=== PATIENT | female | born 1930 | race Caucasian/White ===

== ENCOUNTER 2020-01-01 18:52 | Inpatient (IN) | payer MEDICARE, BC ==
[2020-01-01] MEDS ORDERED: Enoxaparin 30 MG/0.3 ML Syringe SUBCUT SCH (20:45)
--- NOTE | 2020-01-01 20:53 | CT ---
CT HEAD WITHOUT CONTRAST INDICATION: Head injury. Spiral 3.75 mm axial sections were obtained through the brain without contrast with axial, sagittal, coronal reconstruction 01/01/2020 at 2002 hours and compared with same date CT examination from 1331 hours--6 hours prior. Total exam DLP was 1244.99 mGy-cm. There is now noted comminuted fracture of the nasal bones with moderate deformity, more prominent on the right than left with some angulation of the bony fragments to the right. Paranasal sinuses remain well aerated. Soft tissue swelling is noted in the midline at the frontal bone. No cranial fracture site was identified. There is again no shift of midline structures, bleeding site, hematoma, or other acute intracranial abnormality. There is again noted calcification in the internal carotid arteries, especially on the left, and findings compatible with cerebrovascular disease including white matter changes compatible with microvascular disease. Generalized atrophy more prominent cortically is noted. IMPRESSION: 1. No acute intracranial abnormality. 2. Comminuted nasal bone fracture with deformity. 3. Cerebrovascular disease with arterial calcifications and white matter changes compatible with microvascular disease. 4. Cortical and to lesser extent central atrophy. Report was called to Dr. Barrera at 2019 hours. [facility]
--- NOTE | 2020-01-01 21:01 | EDM.PDOC ---
ED HPI GENERAL MEDICAL PROBLEM - General Chief Complaint: General Stated Complaint: FELL Time Seen by Provider: 01/01/20 20:55 Source of Information: Reports: Patient, Family History Limitations: Reports: Altered Mental Status - History of Present Illness INITIAL COMMENTS - FREE TEXT/NARRATIVE: Ellyn is a 89 F with a fall today.Was found on the floor ,bleeding from the nose. She is not able to give much history because of confusion.Earlier today,she was seen by Dr bruno for chronic confusion,anxiety and a headache. A CT at the time was negative. Her daughter last saw her at 4 pm,sleeping on the couch. 2 Hrs later,she was found on the floor.The family endorses that she has been clinic recently,and was in the process of moving to [facility],but tested positive last week,but has remained relatively asymptomatic. hands and face Pain Score (Numeric/FACES): 8 - Related Data Allergies Allergy/AdvReac Type Severity Reaction Status Date / Time No Known Allergies Allergy Verified 01/01/20 19:53 Home Meds: Home Meds Calcium Carbonate/Vitamin D3 [Caltrate-600 with Vit D Tab] 1 each PO DAILY 01/01/20 [History] LORazepam [Ativan] 0.5 mg PO BID PRN #12 tab 01/01/20 [Rx] Multivitamin [Multi-Vitamin Daily] 1 each PO DAILY 01/01/20 [History] Omeprazole Magnesium [Prilosec Otc] 40 mg PO DAILY 01/01/20 [History] Vit A/Vit C/Vit E/Zinc/Copper [Preservision] 1 each PO DAILY 01/01/20 [History] Past Medical History Gastrointestinal History: Reports: PUD Other Gastrointestinal History: bleedint ulcer about 2.5 years ago(now 2019) Neurological History: Reports: Other (See Below) Other Neuro History: dementia Psychiatric History: Reports: Dementia - Past Surgical History GI Surgical History: Reports: EGD Social & Family History - Tobacco Use Tobacco Use Status *Q: Never Tobacco User - Living Situation & Occupation Living situation: Reports: Other ([place] She lives by herself but her family checks on her often.) Occupation: Retired ED ROS GENERAL - Review of Systems Review Of Systems: Comprehensive ROS is negative, except as noted in HPI. Musculoskeletal: Reports: Hand Pain ED EXAM, GENERAL - Physical Exam Exam: See Below Exam Limited By: Altered Mental Status General Appearance: Alert Ears: Normal External Exam Nose: Nasal Deformity, Nasal Swelling Throat/Mouth: Normal Inspection Head: Facial Swelling, Facial Tenderness Neck: Normal Inspection, Supple, Non-Tender Respiratory/Chest: No Respiratory Distress Cardiovascular: Normal Peripheral Pulses GI/Abdominal: Normal Bowel Sounds, Soft Extremities: Normal Inspection Neurological: Alert Psychiatric: Normal Affect Skin Exam: Warm Course - Vital Signs Last Recorded V/S: Last Vital Signs Temp 96.9 F 01/01/20 18:52 Pulse 67 01/01/20 18:52 Resp 30 H 01/01/20 18:52 BP 169/86 H 01/01/20 18:52 Pulse Ox 100 01/01/20 18:52 - Orders/Labs/Meds Orders: Active Orders 24 hr Category Date Time Status Patient Status [ADT] Routine ADT 01/01/20 20:34 Active Oxygen Therapy [RC] PRN Care 01/01/20 20:34 Active Up With Assistance [RC] ASDIRECTED Care 01/01/20 20:34 Active VTE/DVT Education [RC] Per Unit Routine Care 01/01/20 20:34 Active Vital Signs [RC] Q8H Care 01/01/20 20:34 Active OT Evaluation and Treatment [CONS] Routine Cons 01/01/20 20:34 Active PT Evaluation and Treatment [CONS] Routine Cons 01/01/20 20:34 Active Regular Diet [DIET] Diet 01/01/20 Breakfast Ordered Hand Comp Min 3V Bi [CR] Stat Exams 01/01/20 19:41 Taken BASIC METABOLIC PANEL,BMP [CHEM] AM Lab 01/02/20 05:11 Ordered CBC WITH AUTO DIFF [HEME] AM Lab 01/02/20 05:11 Ordered Acetaminophen [TylenoL] Med 01/01/20 20:34 Active 650 mg PO Q4H PRN Acetaminophen/HYDROcodone [[place] 325-5 MG] Med 01/01/20 20:34 Active 1 tab PO Q4H PRN Enoxaparin [Lovenox] Med 01/01/20 20:45 Active 30 mg SUBCUT Q24H Resuscitation Status Routine Resus Stat 01/01/20 20:34 Ordered Medication Orders Acetaminophen (Tylenol) 650 mg PO Q4H PRN PRN Reason: Pain (Mild 1-3)/fever Hydrocodone Bitart/Acetaminophen ([place] 325-5 Mg) 1 tab PO Q4H PRN PRN Reason: Pain (moderate 4-6) Enoxaparin Sodium (Lovenox) 30 mg SUBCUT Q24H [facility] Meds: Medications Generic Name Dose Route Start Last Admin Trade Name Freq PRN Reason Stop Dose Admin Acetaminophen 650 mg 01/01/20 20:34 Tylenol PO Q4H PRN Pain (Mild 1-3)/fever Hydrocodone Bitart/Acetaminophen 1 tab 01/01/20 20:34 [place] 325-5 Mg PO Q4H PRN Pain (moderate 4-6) Enoxaparin Sodium 30 mg 01/01/20 20:45 Lovenox SUBCUT Q24H [facility] Departure - Departure Time of Disposition: 21:02 Disposition: Admitted As Inpatient 66 Condition: Fair Clinical Impression: COVID-19 virus infection, Declining functional status - Discharge Information Referrals: Luis Rajput MD [Primary Care Provider] - Sepsis Event Note (ED) - Evaluation Sepsis Screening Result: No Definite Risk - Focused Exam Vital Signs: Vital Signs Temp Pulse Resp BP Pulse Ox 01/01/20 18:52 96.9 F 67 30 H 169/86 H 100 - Problem List & Annotations (1) Nasal fracture SNOMED Code(s): 230829768 Code(s): S02.2XXA - FRACTURE OF NASAL BONES, INIT ENCNTR FOR CLOSED FRACTURE Status: Acute Current Visit: Yes Qualifiers: Encounter type: initial encounter (2) Fall SNOMED Code(s): 6019995, 747543718 Code(s): W19.XXXA - UNSPECIFIED FALL, INITIAL ENCOUNTER Status: Acute Current Visit: Yes Qualifiers: Encounter type: initial encounter Qualified Code(s): W19.XXXA - Unspecified fall, initial encounter (3) Declining functional status SNOMED Code(s): 795186477606476 Code(s): R53.81 - OTHER MALAISE Status: Acute Current Visit: Yes (4) Decline in verbal memory SNOMED Code(s): 146162915 Code(s): R41.3 - OTHER AMNESIA Status: Chronic Current Visit: Yes (5) COVID-19 virus infection SNOMED Code(s): 161439416 Code(s): U07.1 - COVID-19 Status: Acute Current Visit: No (6) Dementia SNOMED Code(s): 07889857 Code(s): F03.90 - UNSPECIFIED DEMENTIA WITHOUT BEHAVIORAL DISTURBANCE Status: Acute Current Visit: No Qualifiers: Dementia type: unspecified type Dementia behavioral disturbance: with behavioral disturbance Qualified Code(s): F03.91 - Unspecified dementia with behavioral disturbance (7) Hand pain, right SNOMED Code(s): 64765250 Code(s): M79.641 - PAIN IN RIGHT HAND Status: Acute Current Visit: Yes - Problem List Review Problem List Initiated/Reviewed/Updated: Yes - My Orders Last 24 Hours: My Active Orders 01/01/20 Breakfast Regular Diet [DIET] 01/01/20 19:41 Hand Comp Min 3V Bi [CR] Stat 01/01/20 20:34 Patient Status [ADT] Routine Oxygen Therapy [RC] PRN Up With Assistance [RC] ASDIRECTED VTE/DVT Education [RC] Per Unit Routine Vital Signs [RC] Q8H OT Evaluation and Treatment [CONS] Routine PT Evaluation and Treatment [CONS] Routine Acetaminophen [TylenoL] 650 mg PO Q4H PRN Acetaminophen/HYDROcodone [[place] 325-5 MG] 1 tab PO Q4H PRN Resuscitation Status Routine 01/01/20 20:45 Enoxaparin [Lovenox] 30 mg SUBCUT Q24H 01/02/20 05:11 BASIC METABOLIC PANEL,BMP [CHEM] AM CBC WITH AUTO DIFF [HEME] AM - Assessment/Plan Last 24 Hours: My Active Orders 01/01/20 Breakfast Regular Diet [DIET] 01/01/20 19:41 Hand Comp Min 3V Bi [CR] Stat 01/01/20 20:34 Patient Status [ADT] Routine Oxygen Therapy [RC] PRN Up With Assistance [RC] ASDIRECTED VTE/DVT Education [RC] Per Unit Routine Vital Signs [RC] Q8H OT Evaluation and Treatment [CONS] Routine PT Evaluation and Treatment [CONS] Routine Acetaminophen [TylenoL] 650 mg PO Q4H PRN Acetaminophen/HYDROcodone [[place] 325-5 MG] 1 tab PO Q4H PRN Resuscitation Status Routine 01/01/20 20:45 Enoxaparin [Lovenox] 30 mg SUBCUT Q24H 01/02/20 05:11 BASIC METABOLIC PANEL,BMP [CHEM] AM CBC WITH AUTO DIFF [HEME] AM Plan: I will admit to the COVID isolation unit,consult PT once out of isolation. Disposition to be discussed with family ,social media assistant,but likely group home or assisted Living.Control pain with Tylenol.
--- NOTE | 2020-01-01 21:05 | CR ---
BILATERAL HANDS INDICATION: Fall. Three views of the hands, right and left, were obtained 01/01/2020 and revealed an appearance of demineralization suggesting osteoporosis. Moderate to moderately severe hypertrophic degenerative changes and sclerosis are noted at metacarpal carpal joints bilaterally with relatively milder degenerative changes at the metacarpophalangeal joints bilaterally. Interphalangeal joint degenerative changes at the thumbs is also noted, more severe on the right than the left. Degenerative changes are noted at the DIPJ's of the second and third fingers, much more severe on the right than left. Degenerative changes are also noted at the DIPJ's of the fifth fingers bilaterally, much more prominent on the right than left. Mild degenerative changes are noted at the fifth metacarpophalangeal joint on the right. A definite acute fracture or dislocation was not identified. IMPRESSION: 1. No acute fracture or dislocation. 2. Osteoarthritis. 3. Probable osteoporosis. Report was called to the nurses station [facility] for Dr. Barrera 2025 hour. [facility]
[2020-01-01] MEDS: Acetaminophen 325 MG Tab PO PRN (21:57)
[2020-01-02] MEDS: Acetaminophen/HYDROcodone 325-5 MG Tab PO PRN ×3 (00:42→20:41)
[2020-01-02] MEDS ORDERED: Ondansetron 4 MG Tab.DIS PO PRN (09:10)
[2020-01-02] MEDS ORDERED: Ketorolac 15 MG/ML SDV IVPUSH PRN (09:26)
[2020-01-02] MEDS: Acetaminophen 325 MG Tab PO PRN (12:59)
--- NOTE | 2020-01-02 19:08 | PCM.HP.2 ---
H&P History of Present Illness - General Date of Service: 01/02/20 Admit Problem/Dx: Admission Diagnosis/Problem Admission Diagnosis/Problem Head injury without fracture of skull Source of Information: Patient, EMS Notes Reviewed - History of Present Illness Initial Comments - Free Text/Narative: Ellyn is a 89 F with a fall last night, was found on the floor, bleeding from the nose. She is not able to give much history because of dementia. She was seen earlier yesterday by Dr bruno for chronic confusion, anxiety and a headache. A CT head at the time was negative. Her daughter last saw her at 4 pm, was sleeping on the couch. 2 Hrs later, she was found on the floor. The family endorses that she has been clinic recently, and was in the process of moving to [facility], but tested positive on 12/24, but has remained relatively asymptomatic. She complains of right hand/wrist pain but x-ray was negative. Repeat CT head showed nasal fracture. Admitted for PT/OT for falls and isolation for Covid. hands and face Pain Score (Numeric/FACES): 4 - Related Data Allergies/Adverse Reactions: Allergies Allergy/AdvReac Type Severity Reaction Status Date / Time No Known Allergies Allergy Verified 01/01/20 19:53 Home Medications: Home Meds Calcium Carbonate/Vitamin D3 [Caltrate-600 with Vit D Tab] 1 each PO DAILY 01/01/20 [History] LORazepam [Ativan] 0.5 mg PO BID PRN #12 tab 01/01/20 [Rx] Multivitamin [Multi-Vitamin Daily] 1 each PO DAILY 01/01/20 [History] Omeprazole Magnesium [Prilosec Otc] 40 mg PO DAILY 01/01/20 [History] Vit A/Vit C/Vit E/Zinc/Copper [Preservision] 1 each PO DAILY 01/01/20 [History] Past Medical History HEENT History: Reports: Impaired Vision, Macular Degeneration Gastrointestinal History: Reports: PUD Other Gastrointestinal History: bleeding ulcer 2018 Neurological History: Reports: Other (See Below) Other Neuro History: dementia Psychiatric History: Reports: Dementia - Past Surgical History GI Surgical History: Reports: EGD Social & Family History - Tobacco Use Tobacco Use Status *Q: Never Tobacco User - Caffeine Use Caffeine Use: Reports: Coffee - Recreational Drug Use Recreational Drug Use: No - Living Situation & Occupation Living situation: Reports: Other (Lives in a residential [facility] apartment. She lives by herself but her family checks on her often.) Occupation: Retired H&P Review of Systems - Review of Systems: Review Of Systems: Comprehensive ROS is negative, except as noted in HPI. Exam - Exam Exam: See Below - Vital Signs Vital Signs: Last Vital Signs Temp 96.1 F L 01/02/20 15:40 Pulse 66 01/02/20 15:40 Resp 18 01/02/20 15:40 BP 163/78 H 01/02/20 15:40 Pulse Ox 94 L 01/02/20 15:40 Weight: 108 lb 6.4 oz - Exam General: Alert, Oriented, Cooperative. No: Mild Distress HEENT: PERRLA, Conjunctiva Clear, EOMI, Hearing Intact, Nares Patent, Other (Bilateral ecchymosis with soft tissue swelling of both eyes, swelling of nose, no bleeding.) Neck: Supple, Trachea Midline. No: Lymphadenopathy Lungs: Clear to Auscultation, Normal Respiratory Effort Cardiovascular: Regular Rate, Regular Rhythm GI/Abdominal Exam: Normal Bowel Sounds, Soft, Non-Tender, No Distention (Female) Exam: Deferred Rectal (Female) Exam: Deferred Extremities: No Pedal Edema Neuro Extensive - Mental Status: Normal Mood/Affect, Disorientation to Place, Disorientation to Time, Memory Loss-Recent Events - Patient Data Lab Results Last 24 hrs: Laboratory Results - last 24 hr 01/02/20 01/02/20 Range/Units 06:15 06:15 WBC 5.5 (3.0-10.3) x10-3/uL RBC 4.35 (3.60-5.20) x10(6)uL Hgb 12.6 (11.4-15.5) g/dL Hct 39.4 (34.2-48.2) % MCV 90.7 (76.7-100.5) fL MCH 29.1 (23.9-33.9) pg MCHC 32.1 (31.9-34.8) g/dL RDW 13.6 (12.3-16.5) % Plt Count 265 (151-488) x10(3)uL MPV 9.2 (7.1-12.4) fL Neut % (Auto) 62.7 (30.8-76.2) % Lymph % (Auto) 23.5 (18.4-52.1) % [place] % (Auto) 11.8 (4.4-15.7) % Eos % (Auto) 0.8 (0.6-8.1) % Baso % (Auto) 1.2 (0.2-1.5) % Neut # (Auto) 3.4 (1.5-6.3) x10-3/uL Lymph # (Auto) 1.3 (1.0-4.4) x10-3/uL [place] # (Auto) 0.6 (0.3-1.0) x10-3/uL Eos # (Auto) 0.0 (0.0-0.8) x10-3/uL Baso # (Auto) 0.1 (0.0-0.1) x10-3/uL Sodium 141 (135-145) mmol/L Potassium 3.9 (3.5-5.3) mmol/L Chloride 106 (100-110) mmol/L Carbon Dioxide 25 (21-32) mmol/L BUN 9 (7-18) mg/dL Creatinine 0.7 (0.55-1.02) mg/dL Est Cr Clr Drug Dosing 42.29 mL/min Estimated GFR (MDRD) > 60 (>60) BUN/Creatinine Ratio 12.9 (9-20) Glucose 87 (80-116) mg/dL Calcium 8.8 (8.6-10.2) mg/dL Result Diagrams: 01/02/20 06:15 01/02/20 06:15 Sepsis Event Note - Evaluation Sepsis Screening Result: No Definite Risk - Focused Exam Vital Signs: Vital Signs Temp Pulse Resp BP Pulse Ox 01/02/20 15:40 96.1 F L 66 18 163/78 H 94 L 01/02/20 15:32 69 163/105 H 95 01/02/20 07:41 97.0 F 65 17 156/86 H 96 - Problem List (1) COVID-19 virus infection SNOMED Code(s): 261454582 ICD Code: U07.1 - COVID-19 Status: Acute Current Visit: Yes (2) Nasal fracture SNOMED Code(s): 203821432 ICD Code: S02.2XXA - FRACTURE OF NASAL BONES, INIT ENCNTR FOR CLOSED FRACTURE Status: Acute Current Visit: Yes Qualifiers: Encounter type: initial encounter (3) Headache SNOMED Code(s): 49469952 ICD Code: R51.9 - HEADACHE, UNSPECIFIED Status: Acute Current Visit: No Qualifiers: Headache type: unspecified Headache chronicity pattern: acute headache Intractability: not intractable Qualified Code(s): R51.9 - Headache, unspecified (4) Declining functional status SNOMED Code(s): 569672420179142 ICD Code: R53.81 - OTHER MALAISE Status: Acute Current Visit: Yes (5) Fall SNOMED Code(s): 2876091, 470439100 ICD Code: W19.XXXA - UNSPECIFIED FALL, INITIAL ENCOUNTER Status: Acute Current Visit: Yes Qualifiers: Encounter type: initial encounter Qualified Code(s): W19.XXXA - Unspecified fall, initial encounter (6) Hand pain, right SNOMED Code(s): 51050808 ICD Code: M79.641 - PAIN IN RIGHT HAND Status: Acute Current Visit: Yes (7) Decline in verbal memory SNOMED Code(s): 850719678 ICD Code: R41.3 - OTHER AMNESIA Status: Chronic Current Visit: Yes (8) Anxiety SNOMED Code(s): 48069199 ICD Code: F41.9 - ANXIETY DISORDER, UNSPECIFIED Status: Chronic Current Visit: No (9) Dementia SNOMED Code(s): 10228923 ICD Code: F03.90 - UNSPECIFIED DEMENTIA WITHOUT BEHAVIORAL DISTURBANCE Status: Chronic Current Visit: No Qualifiers: Dementia type: unspecified type Dementia behavioral disturbance: with behavioral disturbance Qualified Code(s): F03.91 - Unspecified dementia with behavioral disturbance Problem List Initiated/Reviewed/Updated: Yes Orders Last 24hrs: Active Orders 24 hr Category Date Time Status Patient Status [ADT] Routine ADT 01/01/20 20:34 Active Oxygen Therapy [RC] PRN Care 01/01/20 20:34 Active Up With Assistance [RC] ASDIRECTED Care 01/01/20 20:34 Active Vital Signs [RC] QSHIFT Care 01/01/20 20:34 Active OT Evaluation and Treatment [CONS] Routine Cons 01/01/20 20:34 Active PT Evaluation and Treatment [CONS] Routine Cons 01/01/20 20:34 Active Acetaminophen [TylenoL] Med 01/01/20 20:34 Active 650 mg PO Q4H PRN Acetaminophen/HYDROcodone [[place] 325-5 MG] Med 01/01/20 20:34 Active 1 tab PO Q4H PRN Ketorolac [Toradol] Med 01/02/20 09:26 Active 15 mg IVPUSH Q8H PRN Ondansetron [Zofran ODT] Med 01/02/20 09:10 Active 4 mg PO Q6H PRN ESTUARDO Hose [Antiembolic Hose] [OM.PC] Routine Oth 01/02/20 11:04 Ordered Code Status [Resuscitation Status] Routine Resus Stat 01/02/20 06:28 Ordered Medication Orders Acetaminophen (Tylenol) 650 mg PO Q4H PRN PRN Reason: Pain (Mild 1-3)/fever Last Admin: 01/02/20 12:59 Dose: 650 mg Documented by: Admin: 01/01/20 21:57 Dose: 650 mg Documented by: ROBERT Hydrocodone Bitart/Acetaminophen ([place] 325-5 Mg) 1 tab PO Q4H PRN PRN Reason: Pain (moderate 4-6) Last Admin: 01/02/20 07:48 Dose: 1 tab Documented by: Admin: 01/02/20 00:42 Dose: 1 tab Documented by: ROBERT Ketorolac Tromethamine (Toradol) 15 mg IVPUSH Q8H PRN PRN Reason: Pain Last Admin: 01/02/20 09:43 Dose: 15 mg Documented by: BARBIE Ondansetron HCl (Zofran Odt) 4 mg PO Q6H PRN PRN Reason: Nausea/Vomiting Last Admin: 01/02/20 09:18 Dose: 4 mg Documented by: BARBIE Assessment/Plan Comment:: 1. Admit for fall, nasal fracture, covid 19 positive. 2. PT/OT evaluate & treat if needed. 3. Pain control for nasal fracture: Tylenol 650 mg PO q4h as needed, Toradol 15 mg IV q8h, Hydrocodone-APAP 5/325 mg q4h as needed pain. 4. Isolation precautions: since she is asymptomatic, per infection control her positive was 12/24, needs to be in precautions for 10 days [facility]. 5. Regular diet. 6. Activity: up with assistance, up to chair. 7. DVT: TEDs, no anticoagulation due to history of GI bleed, recent nasal fracture. 8. CODE: DNR/DNI. - Mortality Measure Prognosis:: Poor
[2020-01-03] MEDS: Acetaminophen 325 MG Tab PO PRN ×3 (08:49→18:55)
--- NOTE | 2020-01-03 14:48 | PCM.PN ---
- General Info Date of Service: 01/03/20 Subjective Update: Jc was very active overnight, getting out of bed and ambulating the halls, going into other patient rooms. Pain is controlled with Tylenol & Hydrocodone/APAP. Slept about 3 hours last night. Sitting in her bed, no acute distress. states she feels "icky" but unable to get her to define where or what she means by that. Headache is better. Bruising extending down to right jaw now. Abrasions more visible on forehead, nose bridge and left nare over yesterday. P T/OT did not flower picker, ambulating well with cane. Due to be admitted to [facility] on Wednesday, family can take home tomorrow evening but does not have a safe discharge today. Functional Status: Reports: Pain Controlled, Tolerating Diet, Ambulating, Urinating - Patient Data Vitals - Most Recent: Last Vital Signs Temp 96.9 F 01/03/20 08:00 Pulse 77 01/03/20 08:00 Resp 18 01/03/20 08:00 BP 120/78 01/03/20 08:00 Pulse Ox 94 L 01/03/20 08:00 Weight - Most Recent: 108 lb 6.4 oz I&O - Last 24 Hours: Intake & Output 01/02/20 01/03/20 01/03/20 22:59 06:59 14:59 Output Total 0 Balance 0 Med Orders - Current: Current Medications Acetaminophen (Tylenol) 650 mg PO Q4H PRN PRN Reason: Pain (Mild 1-3)/fever Last Admin: 01/03/20 14:00 Dose: 650 mg Documented by: Hydrocodone Bitart/Acetaminophen ([place] 325-5 Mg) 1 tab PO Q4H PRN PRN Reason: Pain (moderate 4-6) Last Admin: 01/02/20 20:41 Dose: 1 tab Documented by: Ondansetron HCl (Zofran Odt) 4 mg PO Q6H PRN PRN Reason: Nausea/Vomiting Last Admin: 01/02/20 09:18 Dose: 4 mg Documented by: Discontinued Medications Enoxaparin Sodium (Lovenox) 30 mg SUBCUT Q24H [place] Last Admin: 01/01/20 21:53 Dose: 30 mg Documented by: Ketorolac Tromethamine (Toradol) 15 mg IVPUSH Q8H PRN PRN Reason: Pain Last Admin: 01/02/20 09:43 Dose: 15 mg Documented by: - Exam General: Alert, Oriented (person, place), Cooperative, No Acute Distress HEENT: Pupils Equal, Pupils Reactive, Other (raccoon eyes, no CSF present. Ecchymosis extending down to right jaw; abrasions to midforehead, nose bridge and left nare.) Lungs: Clear to Auscultation, Normal Respiratory Effort Cardiovascular: Regular Rate, Regular Rhythm GI/Abdominal Exam: Normal Bowel Sounds, Soft, Non-Tender, No Distention Sepsis Event Note - Evaluation Sepsis Screening Result: No Definite Risk - Focused Exam Vital Signs: Vital Signs Temp Pulse Resp BP Pulse Ox 01/03/20 08:00 96.9 F 77 18 120/78 94 L - Problem List & Annotations (1) COVID-19 virus infection SNOMED Code(s): 831074384 Code(s): U07.1 - COVID-19 Status: Acute Current Visit: Yes (2) Nasal fracture SNOMED Code(s): 193432172 Code(s): S02.2XXA - FRACTURE OF NASAL BONES, INIT ENCNTR FOR CLOSED FRACTURE Status: Acute Current Visit: Yes Qualifiers: Encounter type: initial encounter (3) Headache SNOMED Code(s): 81882591 Code(s): R51.9 - HEADACHE, UNSPECIFIED Status: Acute Current Visit: No Qualifiers: Headache type: unspecified Headache chronicity pattern: acute headache Intractability: not intractable Qualified Code(s): R51.9 - Headache, unspecified (4) Declining functional status SNOMED Code(s): 734203088840030 Code(s): R53.81 - OTHER MALAISE Status: Acute Current Visit: Yes (5) Fall SNOMED Code(s): 9522286, 734363371 Code(s): W19.XXXA - UNSPECIFIED FALL, INITIAL ENCOUNTER Status: Acute Current Visit: Yes Qualifiers: Encounter type: initial encounter Qualified Code(s): W19.XXXA - Unspecified fall, initial encounter (6) Hand pain, right SNOMED Code(s): 01358728 Code(s): M79.641 - PAIN IN RIGHT HAND Status: Acute Current Visit: Yes (7) Decline in verbal memory SNOMED Code(s): 249367220 Code(s): R41.3 - OTHER AMNESIA Status: Chronic Current Visit: Yes (8) Anxiety SNOMED Code(s): 24798935 Code(s): F41.9 - ANXIETY DISORDER, UNSPECIFIED Status: Chronic Current Visit: No (9) Dementia SNOMED Code(s): 56635822 Code(s): F03.90 - UNSPECIFIED DEMENTIA WITHOUT BEHAVIORAL DISTURBANCE Status: Chronic Current Visit: No Qualifiers: Dementia type: unspecified type Dementia behavioral disturbance: with behavioral disturbance Qualified Code(s): F03.91 - Unspecified dementia with behavioral disturbance - Problem List Review Problem List Initiated/Reviewed/Updated: Yes - My Orders Last 24 Hours: My Active Orders 01/02/20 20:15 Peripheral IV Discontinue [OM.PC] Routine 01/03/20 11:49 Cooling Warming Measures [RC] ASDIRECTED - Plan Plan:: 1. covid 19 positive: isolation until 01/03. 2. PT/OT recommended cane for walking, did not flower picker for services. 3. Pain control for nasal fracture: Tylenol 650 mg PO q4h as needed, Hydrocodone-APAP 5/325 mg q4h as needed pain. 4. DVT: TEDs, no anticoagulation due to history of GI bleed, recent nasal fracture. 5. Discharge: does not have safe discharge currently, family would be able to get her and stay with her through the weekend until she can be admitted to [facility].
[2020-01-03] MEDS: Acetaminophen/HYDROcodone 325-5 MG Tab PO PRN (20:40)
[2020-01-04] MEDS: Acetaminophen 325 MG Tab PO PRN (06:30)
--- NOTE | 2020-01-04 14:10 | PCM.DCSUM1 ---
Discharge Summary - Hospital Course HPI Initial Comments: Ellyn is a 89 F with a fall last night, was found on the floor, bleeding from the nose. She is not able to give much history because of dementia. She was seen earlier yesterday by Dr bruno for chronic confusion, anxiety and a headache. A CT head at the time was negative. Her daughter last saw her at 4 pm, was sleeping on the couch. 2 Hrs later, she was found on the floor. The family endorses that she has been clinic recently, and was in the process of moving to [facility], but tested positive on 12/24, but has remained relatively asymptomatic. She complains of right hand/wrist pain but x-ray was negative. Repeat CT head showed nasal fracture. Admitted for PT/OT for falls and isolation for Covid. Diagnosis: Stroke: No - Discharge Data Discharge Date: 01/04/20 (with family) Discharge Disposition: Home, Self-Care 01 Condition: Fair - Referral to Home Health Primary Care Physician: Luis Rajput MD - Discharge Diagnosis/Problem(s) (1) COVID-19 virus infection SNOMED Code(s): 156277447 ICD Code: U07.1 - COVID-19 Status: Acute Current Visit: Yes (2) Nasal fracture SNOMED Code(s): 947994379 ICD Code: S02.2XXA - FRACTURE OF NASAL BONES, INIT ENCNTR FOR CLOSED FRACTURE Status: Acute Current Visit: Yes Qualifiers: Encounter type: initial encounter (3) Headache SNOMED Code(s): 23652358 ICD Code: R51.9 - HEADACHE, UNSPECIFIED Status: Resolved Current Visit: No Qualifiers: Headache type: unspecified Headache chronicity pattern: acute headache Intractability: not intractable Qualified Code(s): R51.9 - Headache, unspecified (4) Declining functional status SNOMED Code(s): 115444918546083 ICD Code: R53.81 - OTHER MALAISE Status: Resolved Current Visit: Yes (5) Fall SNOMED Code(s): 9568756, 935241694 ICD Code: W19.XXXA - UNSPECIFIED FALL, INITIAL ENCOUNTER Status: Acute Current Visit: Yes Qualifiers: Encounter type: initial encounter Qualified Code(s): W19.XXXA - Unspecified fall, initial encounter (6) Hand pain, right SNOMED Code(s): 83006330 ICD Code: M79.641 - PAIN IN RIGHT HAND Status: Acute Current Visit: Yes (7) Decline in verbal memory SNOMED Code(s): 308894471 ICD Code: R41.3 - OTHER AMNESIA Status: Chronic Current Visit: Yes (8) Anxiety SNOMED Code(s): 35967850 ICD Code: F41.9 - ANXIETY DISORDER, UNSPECIFIED Status: Chronic Current Visit: No (9) Dementia SNOMED Code(s): 95721139 ICD Code: F03.90 - UNSPECIFIED DEMENTIA WITHOUT BEHAVIORAL DISTURBANCE Status: Chronic Current Visit: No Qualifiers: Dementia type: unspecified type Dementia behavioral disturbance: with behavioral disturbance Qualified Code(s): F03.91 - Unspecified dementia with behavioral disturbance - Patient Summary/Data Consults: Consultations 01/01/20 20:34 OT Evaluation and Treatment [CONS] Routine Please Evaluate and Treat. OT Reason for Consult: ADL's This query below is only for informational purposes and is not editable. PT Evaluation and Treatment [CONS] Routine Please Evaluate and Treat. PT Reason for Consult: Ambulation This query below is only for informational purposes and is not editable. Hospital Course: Had nasal fracture on 12/31, had headache yesterday, required Tylenol & [place] for pain. Had Toradol 15 mg IV until she pulled her IV out. PT/OT evaluated and recommended cane for walking assistance but did not require continued therapies. She did not have safe discharge back home yesterday so will go home tonight with her niece who can stay with her over the weekend until she can be admitted to [facility] on Wednesday in an apartment. She is more alert today, slept well, no headache. Ice as needed to her nose. - Patient Instructions Diet: Usual Diet as Tolerated Activity: As Tolerated Driving: Do Not Drive Showering/Bathing: May Shower Notify Provider of: Fever, Increased Pain, Swelling and Redness, Drainage, Nausea and/or Vomiting Other/Special Instructions: Follow up with Dr Rajput in 2 weeks. - Discharge Plan *PRESCRIPTION DRUG MONITORING PROGRAM REVIEWED*: Not Applicable *COPY OF PRESCRIPTION DRUG MONITORING REPORT IN PATIENT DELORES: Not Applicable Home Medications: Home Meds Calcium Carbonate/Vitamin D3 [Caltrate 600 Plus D3 Tablet] 1 each PO DAILY 01/01/20 [History] Multivitamin [Multi-Vitamin Daily] 1 each PO DAILY 01/01/20 [History] Omeprazole Magnesium [Prilosec Otc] 40 mg PO DAILY 01/01/20 [History] Vit A/Vit C/Vit E/Zinc/Copper [Preservision] 1 each PO DAILY 01/01/20 [History] Acetaminophen [Tylenol] 650 mg PO Q4H PRN #0 tablet 01/04/20 [Rx] Oxygen Therapy Mode: Room Air Forms: ED Department Discharge Referrals: Luis Rajput MD [Primary Care Provider] - - Discharge Summary/Plan Comment DC Time >30 min.: No - General Info Date of Service: 01/04/20 Subjective Update: More alert today, no complaint of headache, bruising around her eyes better more settled in her jaw. Been up walking with PT/OT or nursing in the halls. Slept better last night. - Patient Data Vitals - Most Recent: Last Vital Signs Temp 99.2 F 01/04/20 08:00 Pulse 69 01/04/20 08:00 Resp 18 01/04/20 08:00 BP 166/82 H 01/04/20 08:00 Pulse Ox 95 01/04/20 08:00 Weight - Most Recent: 108 lb 6.4 oz Med Orders - Current: Current Medications Acetaminophen (Tylenol) 650 mg PO Q4H PRN PRN Reason: Pain (Mild 1-3)/fever Last Admin: 01/04/20 06:30 Dose: 650 mg Documented by: Hydrocodone Bitart/Acetaminophen ([place] 325-5 Mg) 1 tab PO Q4H PRN PRN Reason: Pain (moderate 4-6) Last Admin: 01/03/20 20:40 Dose: 1 tab Documented by: Ondansetron HCl (Zofran Odt) 4 mg PO Q6H PRN PRN Reason: Nausea/Vomiting Last Admin: 01/02/20 09:18 Dose: 4 mg Documented by: Discontinued Medications Enoxaparin Sodium (Lovenox) 30 mg SUBCUT Q24H [place] Last Admin: 01/01/20 21:53 Dose: 30 mg Documented by: Ketorolac Tromethamine (Toradol) 15 mg IVPUSH Q8H PRN PRN Reason: Pain Last Admin: 01/02/20 09:43 Dose: 15 mg Documented by: - Exam General: Reports: Alert, Oriented (person, place), Cooperative, No Acute Distress HEENT: Reports: Pupils Equal, Pupils Reactive, EOMI, Other (ecchymosis resolving around eyes, more ) Lungs: Reports: Clear to Auscultation, Normal Respiratory Effort Cardiovascular: Reports: Regular Rate, Regular Rhythm GI/Abdominal Exam: Normal Bowel Sounds, Soft, Non-Tender, No Distention (Female) Exam: Deferred Rectal (Female) Exam: Deferred Skin: Reports: Warm, Dry, Intact
== END 2020-01-04 19:35 | disposition home or self-care (01) | DRG 154 ==
LOC: FB.ED 18:52 → FB.MS 20:34
PROVIDERS: ADMIT Family Medicine; ATTEND Family Medicine
DX: S02.2XXA Fracture of nasal bones, initial encounter for closed fracture (principal); U07.1 COVID-19; W19.XXXA Unspecified fall, initial encounter; F03.91 Unspecified dementia, unspecified severity, with behavioral disturbance; R51.9 Headache, unspecified; R53.81 Other malaise; M79.641 Pain in right hand; R41.3 Other amnesia; F41.9 Anxiety disorder, unspecified; Z66 Do not resuscitate; K27.9 Peptic ulcer, site unspecified, unspecified as acute or chronic, without hemorrhage or perforation; Z79.899 Other long term (current) drug therapy; Z87.11 Personal history of peptic ulcer disease; W08.XXXA Fall from other furniture, initial encounter; Y93.84 Activity, sleeping
CPT/HCPCS: 36415; 70450; 73130-50; 80048; 80053; 81001; 83735; 84484; 85025; 85651; 86140; 93005; 93010; 97161-GP; 99285; 99285-25; A9270-GY; J1650; J1885; J2060; J7040